=== PATIENT | female | born 1985 | race Two or more races ===

== ENCOUNTER 2016-06-21 08:57 | Emergency (ER) | payer SELFPAY ==
[~2016-06-21] VITALS: Ht 149.9 cm; Wt 52.2 kg
[2016-06-21 09:23] LABS: KETONES,URINE NEGATIVE (NEGATIVE); LEUKOCYTE ESTERASE ,URINE TRACE (NEGATIVE)
[2016-06-21 09:25] LABS: BASOPHILS % (AUTO) 0.3 % (0.0-2.0); DIFF TOTAL % 100 %; EOSINOPHILS % (AUTO) 0.4 % (0.0-6.0); HEMATOCRIT 36 % (33-45); HEMOGLOBIN 12.5 g/dL (11.5-14.8); LYMPHOCYTES # (AUTO) 1.6 /CMM (0.8-4.8); LYMPHOCYTES % (AUTO) 27.1 % (20.0-44.0); MEAN CORPUSCULAR HEMOGLOBIN 32 PG (26.0-33.0); MEAN CORPUSCULAR HGB CONC 34 g/dl (31.0-36.0); MEAN CORPUSCULAR VOLUME 94 fL (82-100); MONOCYTES # (AUTO) 0.7 /CMM (0.1-1.30); MONOCYTES % (AUTO) 10.8 % (2.0-12.0); NEUTROPHILS # (AUTO) 3.7 /CMM (1.8-8.9); NEUTROPHILS % (AUTO) 61.4 % (43.0-81.0); PLATELET COUNT (AUTO) 212 /CMM (150-450); RED BLOOD CELL COUNT(AUTO) 3.89 MIL/uL (4.0-5.2)
[2016-06-21 09:28] LABS: ADD UA MICROSCOPIC YES
[2016-06-21 09:30] LABS: RBC,URINE TOO NUMEROUS TO COUN /HPF (0-2)
[2016-06-21 09:31] LABS: ADD URINE CULTURE NO; WBC,URINE 0-5 /HPF (0-3)
[2016-06-21 09:35] LABS: ANION GAP 13 (5-14); CALCIUM, SERUM 8.4 mg/dL (8.5-10.1); CARBON DIOXIDE 25 mmol/L (21-32); CHLORIDE 106 mmol/L (98-107); CREATININE 0.6 mg/dL (0.6-1.3); GFR 118 mL/min (>60); GLUCOSE 94 mg/dL (74-106); POTASSIUM 3.9 mmol/L (3.5-5.1); SODIUM SERUM 140 mmol/L (136-145); UREA NITROGEN, BLOOD 11 mg/dL (7-18)
[2016-06-21 10:41] LABS: PREGNANCY TEST SERUM QUAN < 1 mIU/mL (0-6)
[2016-06-21 11:20] VITALS: BP 129/74
== END 2016-06-21 11:23 | disposition home or self-care (01) ==
LOC: ER 08:59
DX: O20.8 Other hemorrhage in early pregnancy (principal); K59.00 Constipation, unspecified; E11.9 Type 2 diabetes mellitus without complications; Z88.0 Allergy status to penicillin; Z88.6 Allergy status to analgesic agent; Z91.040 Latex allergy status
CPT/HCPCS: 36415; 76856; 80048; 81001; 84702; 85025; 99285; A4606; Z7610; 81000-TC